=== PATIENT | male | born 1955 | race Two or more races ===

== ENCOUNTER 2019-02-03 14:07 | Inpatient (IN) | payer OTHER, MEDICAID ==
[~2019-02-03] VITALS: Ht 177.8 cm; Wt 90.7 kg
[~2019-02-03 14:07] MED LIST: ACET-1156 GT; ALPR0.5T7 PO; AML5T GT; ASPI81TA27 GT; FURO20TA GT; LACT10SO3 GT; LEVE500T3 GT; LEVO500T21 GT; LEVO750T64 PEG; LISI40TA PO; METF-370 GT; METF500T PEG; PANT40TA2 PO; SENN1TAB14 PO
[2019-02-03 14:56] LABS: Basophils # (auto) 0.1 uL; Eosinophils # (auto) 0.9 uL; Lymphocytes # (auto) 1.4 uL; Mean Corpuscular Volume 87.5 fL (80.0-100.0); Monocytes # (auto) 0.5 uL; Neutrophils # (auto) 3.6 uL; White Blood Cell 6.5 10^3/uL (4.4-10.8)
[2019-02-03 14:58] LABS: Basophils % (auto) 1.9 % (0.0-2.0); Eosinophils % (auto) 14.1 % (0.0-7.0); Hematocrit 51.9 % (41.0-53.0); Hemoglobin 17.2 g/dL (13.5-17.5); Lymphocytes % (auto) 21.4 % (10.0-50.0); Mean Corpuscular Hemoglobin 28.9 pg (28.0-32.0); Mean Corpuscular Hgb Conc. 33.1 g/dL (32.0-36.0); Monocytes % (auto) 7.6 % (0.0-12.0); Nucleated Red Blood Cells % 0.3 %; Platelet Count (auto) 155 10^3/uL (140-450); Red Blood Cells 5.93 10^6/uL (4.5-5.90); Red Cell Distribution Width 14.2 % (11.8-14.3)
[2019-02-03 15:12] LABS: Alanine Aminotransferase 39 U/L (16-61); Albumin 3.6 g/dL (3.4-5.0); Anion Gap 4 (5-15); Blood Urea Nitrogen 17 mg/dL (7-18); Calcium 9.5 mg/dL (8.5-10.1); Carbon Dioxide 34 mmol/L (21-32); Chloride 103 mmol/L (98-107); Glucose 178 mg/dL (74-106); Magnesium 2.8 mg/dL (1.6-2.6); Potassium 4.3 mmol/L (3.5-5.1); Sodium 141 mmol/L (136-145)
[2019-02-03 15:17] LABS: Alkaline Phosphatase 72 U/L (45-117); Aspartate Aminotransferase 26 U/L (15-37); BUN/Creatinine Ratio 28.8; Bilirubin, Total 0.7 mg/dL (0.2-1.0); GFR African American 179 mL/min; GFR Non-African American 148 mL/min; Total Protein 7.7 g/dL (6.4-8.2)
[2019-02-03] MEDS ORDERED: SODIUM CHLORIDE 0.9% 1,000 ML IVB ONE (15:35)
[2019-02-03] MEDS ORDERED: AZITHROMYCIN 500MG/ 250ML 250 ML IV ONE (15:45)
[2019-02-03 16:06] LABS: Urine WBC None Seen /hpf (0 - 3)
[2019-02-03 16:22] LABS: Urine Amorphous Crystal FEW /hpf (None Seen); Urine Bacteria NONE SEEN /hpf (None Seen); Urine Blood TRACE /uL (Negative); Urine Budding Yeast FEW /hpf (None Seen); Urine Specific Gravity 1.012 (1.001-1.035)
[2019-02-03 16:25] VITALS: BP 143/86
[2019-02-03] MEDS ORDERED: NITROGLYCERIN 0.4 MG SL TAB SL PRN (16:45)
[2019-02-03] MEDS ORDERED: Glucerna 1.2 Cal 1Liter BOTTLE GT SCH (16:45)
[2019-02-03] MEDS ORDERED: AMIKACIN 0 ML IV SCH (16:45)
[2019-02-03] MEDS ORDERED: ACETAMINOPHEN 500 MG TAB PO PRN (16:45)
[2019-02-03] MEDS ORDERED: MORPHINE SULF INJ 2 MG/ML SYRINGE 1ML IV PRN ×2 (16:45)
[2019-02-03] MEDS ORDERED: HYDROcodone-ACET 5/325MG TAB PO PRN (16:45)
[2019-02-03 16:58] LABS: INR 0.95 (0.9-1.15); Partial Thromboplastin Time 28.7 sec (23.64-32.05)
[2019-02-03] MEDS ORDERED: LACTULOSE 20Gm/30ML SOLN PO PRN (17:15)
[2019-02-03] MEDS: ALBUTEROL SULF 2.5 MG/0.5ML(0.5%) NEB SOLN NEB SCH ×2 (17:29→21:41)
[2019-02-03] MEDS: IPRATROPIUM BROM 0.5 MG/2.5ML INH SOL NEB SCH ×2 (17:29→21:41)
[2019-02-03] MEDS ORDERED: LACTULOSE 20Gm/30ML SOLN GT PRN (17:30)
[2019-02-03] MEDS ORDERED: HYDROcodone-ACET 5/325MG TAB GT PRN (17:30)
[2019-02-03] MEDS ORDERED: ACETAMINOPHEN 650 mg PER 20 mL UD GT PRN (17:30)
[2019-02-03] MEDS: FREE WATER GT SCH (18:13)
[2019-02-03 20:00] VITALS: BP 138/83
--- NOTE | 2019-02-03 20:10 | NUR ---
Admit to [facility] admitted to [facility] via gurney on monitoring analyst, and portable 02. Patient transferred to bed, connected to unit monitoring and oxygen @ 4L/min per nasal cannula, and weighed by bedscale. Patient and family oriented to Steph Wynne, primary RN, unit, room, bed, and unit policies regarding patient care and visiting hours. All questions and concerns addressed, patient verbalized understanding. NOTE: Patient came in with a midline in the right upper arm and g-tube, abdomen from home, munoz catheter which was inserted in ER. MRSA swab in the nares done d/t previous hospital admission 2 weeks ago, SCD's placed on bilateral legs. Initial assessment showed pt is aphasic and per daughter, can only see in the right eye but with cataract in the left eye. See spreadsheet for full assessment documentation. Medrec completed. No personal belongings noted.
--- NOTE | 2019-02-03 20:30 | NUR ---
MODERATE AMOUNT OF SOFT STOOLS NOTED, CLEANSED AND KEPT DRY AND COMFORTABLE, LINENS AND GOWN CHANGED. REPOSITIONED FOR COMFORT.
[2019-02-03] MEDS ORDERED: AMIKACIN IV SCH (21:00)
[2019-02-03] MEDS ORDERED: D5W 5% IV SCH (21:00)
[2019-02-03] MEDS ORDERED: GEMF600T7 PO (21:44)
[2019-02-03] MEDS: DOCUSATE ORAL LIQUID 100 MG/10 ML UD GT SCH (22:00)
[2019-02-03] MEDS: ALPRAZolam 0.25 MG TAB GT SCH (22:00)
[2019-02-03 22:46] VITALS: BP 134/83
[2019-02-04] VITALS (7 sets, daily range): BP systolic 103–133; BP diastolic 66–83
--- NOTE | 2019-02-04 03:00 | NUR ---
DESATURATION 84-85% ON O2/NASAL CANNULA, SHIFTED TO SIMPLE FACE MASK @ 8L/MIN, SAT 92%.
[2019-02-04 05:36] LABS: Basophils # (auto) 0.1 uL; Eosinophils # (auto) 0.8 uL; Eosinophils % (auto) 9.2 % (0.0-7.0); Hemoglobin 16.5 g/dL (13.5-17.5); Lymphocytes % (auto) 22.9 % (10.0-50.0); Mean Corpuscular Hemoglobin 29.4 pg (28.0-32.0); Mean Corpuscular Hgb Conc. 33.7 g/dL (32.0-36.0); Mean Corpuscular Volume 87.1 fL (80.0-100.0); Monocytes # (auto) 0.7 uL; Monocytes % (auto) 8.5 % (0.0-12.0); Neutrophils % (auto) 58.4 % (37.0-80.0); Nucleated Red Blood Cells % 0.5 %; Platelet Count (auto) 142 10^3/uL (140-450); Red Blood Cells 5.63 10^6/uL (4.5-5.90); Red Cell Distribution Width 14.3 % (11.8-14.3); White Blood Cell 8.6 10^3/uL (4.4-10.8)
[2019-02-04 05:45] LABS: BUN/Creatinine Ratio 26.5
[2019-02-04] MEDS: FREE WATER GT SCH ×4 (06:00→17:15)
[2019-02-04] MEDS: IPRATROPIUM BROM 0.5 MG/2.5ML INH SOL NEB SCH ×5 (06:10→22:46)
[2019-02-04] MEDS: ALBUTEROL SULF 2.5 MG/0.5ML(0.5%) NEB SOLN NEB SCH ×5 (06:10→22:46)
--- NOTE | 2019-02-04 06:25 | NUR ---
RT NOTE: NTS PERFORMED BY STERILE PROCEDURE. TWO PASSES MADE WITHOUT INCIDENT. COARSE RHONCHI NOTED PRIOR TO SUCTION, AND CLEAR/DIMINSHED AFTER NTS. PT. HAS STRONG COUGH WHEN NTS. ORALLY SUCTIONED FOR MODERATE, CLEAR/THICK SECRETIONS.
--- NOTE | 2019-02-04 09:15 | NUR ---
WOUND CARE NOTE: SYNERGY AIR ELITE AIR MATTRESS ORDERED AT THIS TIME. PATIENT TO BE PLACED, PENDING DELIVERY BY [facility] ALEXANDRE.
[2019-02-04] MEDS: ASPirin 81 mg TAB GT SCH (09:40)
[2019-02-04] MEDS: LISINOPRIL 20 MG TAB GT SCH (09:40)
[2019-02-04] MEDS: amLODIPine BESYLATE 5 MG TAB GT SCH (09:41)
[2019-02-04] MEDS: ALPRAZolam 0.25 MG TAB GT SCH (09:51)
[2019-02-04] MEDS: DOCUSATE ORAL LIQUID 100 MG/10 ML UD GT SCH ×2 (09:51→22:00)
[2019-02-04] MEDS ORDERED: FAMOTIDINE 20 MG TAB PO SCH (10:00)
--- NOTE | 2019-02-04 10:00 | NUR ---
Family updated on pt status Family of KYLE RENDON updated on patient's status and condition. All questions and concerns addressed. and step daughter verbalized understanding.
--- NOTE | 2019-02-04 11:30 | NUR ---
SPECIALTY BED SPECIALTY BED BROUGHT TO [facility] FOR PATIENT. PATIENT PLACED ON SPECIALTY BED
--- NOTE | 2019-02-04 11:50 | NUR ---
WOUND CARE NOTE: IN TO SEE PATIENT AT THIS TIME PER WOUND CARE CONSULT REQUEST. PATIENT RECENTLY ADMITTED TO [facility] WITH DIAGNOSIS OF ACUTE ON CHRONIC RESPIRATORY FAILURE. HE HAS CURRENT RADHA SCORE OF 13. PATIENT HAS RECENTLY BEEN PLACED ON SPECIALTY AIR MATTRESS PER MD ORDER. PATIENT IS APHASIAC, TOTAL CARE FOR HIS ADL'S. HE IS BEDBOUND. 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 PATIENT HAS PREVENTATIVE SACRAL DRESSING IN PLACE. WOUND PHOTO OF SCARS TAKEN UPON ADMIT BY BEDSIDE NURSE FOR REFERENCE. RECOMMEND: FREQUENT TURN SCHEDULE Q 2 HOURS, PRN CONDITION PERMITS, WITH PRESSURE REDISTRIBUTION USING PILLOWS/WEDGES, BID/PRN APPLICATION WITH MOISTURE BARRIER CREAM, OPTIFOAM GENTLE SACRAL DRESSING, SPECIALTY AIR MATTRESS, SKIN/WOUND CARE PLAN, DIETARY CONSULT, CONTINUED MONITORING BY WOUND CARE TEAM. Addendum: 02/04/19 at 1756 by Kayleen Thurman RN Amended: Links added.
[2019-02-04] MEDS: OMEPRAZOLE 20MG/10ML ORAL SUSP GT SCH (11:54)
--- NOTE | 2019-02-04 12:24 | NUR ---
NUTRITION CONSULT/ASSESSMENT NOTES Please refer to link notes of nutrition screen form filed under the intervention section of the plan of care for further details. Est. Needs: 1800 kcal to 1950 kcal (23-25 kcal/kgBW), 78 gms to 102 gms pro (1.0-1.3 gms/kgBW for wound healing). Will continue to monitor pertinent labs and reassess nutrient need prn Thank you for this consult. Addendum: 02/04/19 at [address] Amended: Links added.
[2019-02-04] MEDS ORDERED: ALPRAZolam 0.25 MG TAB PO PRN (12:45)
--- NOTE | 2019-02-04 13:00 | NUR ---
MD ROUNDS DR. TORRES AT BEDSIDE. NEW ORDERS IN PLACE.
[2019-02-04] MEDS: Glucerna 1.2 Cal 1Liter BOTTLE GT SCH (13:25)
--- NOTE | 2019-02-04 13:48 | NUR ---
NUTRITION MAST MAKER ORDERED GLUCERNA AT 70MLS/HR. NO RESIDUAL WHEN CHECKED. GLUCERNA INCREASED TO 50MLS/MR. ASPIRATION PRECAUTIONS IN PLACE.
[2019-02-04] MEDS ORDERED: GABAPENTIN 100 MG CAP PO SCH (14:00)
[2019-02-04] MEDS ORDERED: DEXTROSE (50%) 50ML SYRG IV PRN (14:15)
[2019-02-04] MEDS: ACCU-CHEK COMFORT CURVE STRIP VI SCH ×2 (17:08→22:09)
[2019-02-04] MEDS: InsuLIN REG 1unit/0.01ml Soln (100units/ml) SC SCH ×2 (17:14→22:00)
[2019-02-04] MEDS: NYSTATIN (MOUTH-THROAT) 500,000 UNITS/5 ML SUSP MT SCH ×2 (17:21→22:08)
--- NOTE | 2019-02-04 17:53 | NUR ---
CALLED SLIVER FORMER INFORMED HER THAT PATIENT WAS NOT ON LIST FOR OR. HAYLEE SUP. AWARE.
--- NOTE | 2019-02-04 20:00 | NUR ---
SHIFT OPENING NOTE RECEIVED PATIENT LAYING IN SPECIALTY MATTRESS, APHASIC, DOES NOT RESPOND TO QUESTIONS OR TRACKS. NO SOB OR DISTRESS NOTED. ON 4L N/C. G TUBE IN PLACE WITH GLUCERNA FEEDINGS AT 50 ML/H, 2O ML OF RESIDUALS NOTED. POLLACK CATH DRAINING RED TINGED URINE WITH SEDIMENT TO GRAVITY. MIDLINE IN RIGHT UPPER ARM SL. PHYSICAL ASSESSMENT COMPLETED, SEE INTERVENTIONS. ORAL SUCTION, AND REPOSITIONED. UNABLE TO EDUCATE PATIENT REGARDING POC. WILL CLOSELY MONITOR.
[2019-02-04] MEDS: D5W 5% IV SCH (22:10)
[2019-02-04] MEDS: AMIKACIN IV SCH (22:10)
[2019-02-05] VITALS: BP 126/76
[2019-02-05] MEDS: FREE WATER GT SCH ×4 (00:08→17:47)
--- NOTE | 2019-02-05 00:10 | NUR ---
ROUNDS PATIENT IS LAYING IN BED SLEEPING. NO SOB, DISTRESS OR PAIN NOTED. WILL CONTINUE TO CLOSELY MONITOR
[2019-02-05 04:00] VITALS: BP 115/70
--- NOTE | 2019-02-05 04:30 | NUR ---
MORNING HYGIENE CARE ORAL CARE PERFORMED. ORALLY SUCTIONED OUT MODERATE AMOUNT OF CREAMY THICK SECRETIONS. FULL BED BATH PERFORMED USING CHG WIPES. COMPLETE LINEN CHANGED. GOWN CHANGED. POLLACK CARE DONE. PATIENT REPOSITIONED FOR COMFORT. TOLERATED IT WELL. VS STABLE.
[2019-02-05 05:59] LABS: Potassium 3.8 mmol/L (3.5-5.1)
[2019-02-05] MEDS: NYSTATIN (MOUTH-THROAT) 500,000 UNITS/5 ML SUSP MT SCH ×4 (06:00→21:15)
[2019-02-05] MEDS: IPRATROPIUM BROM 0.5 MG/2.5ML INH SOL NEB SCH ×5 (06:19→22:31)
[2019-02-05] MEDS: ALBUTEROL SULF 2.5 MG/0.5ML(0.5%) NEB SOLN NEB SCH ×5 (06:19→22:31)
[2019-02-05] MEDS: ACCU-CHEK COMFORT CURVE STRIP VI SCH ×4 (06:30→21:16)
[2019-02-05] MEDS: InsuLIN REG 1unit/0.01ml Soln (100units/ml) SC SCH ×4 (06:30→21:26)
--- NOTE | 2019-02-05 07:00 | NUR ---
END OF SHIFT PATIENT IS QUIETLY LAYING IN BED SLEEPING. NO SOB, DISTRESS OR PAIN NOTED. POX 97% ON 4L N/C. WILL GIVE REPORT AND ENDORSE CARE TO THE DAY SHIFT RN.
[2019-02-05 08:00] VITALS: BP 110/61
--- NOTE | 2019-02-05 08:16 | NUR ---
Opening Shift Note Assumed care of patient, awake and alert. Patient aphasic and cannot respond to questions and does not track. Patient on 4L NC saturation at 98%. Zavala to gravity. Midline right upper arm saline locked, patent, clean, dry, and intact. G tube in place running Glucerna at 50ml/hr. No S/S of distress/SOB or pain. Bed locked and in the lowest position, side rails up x2, call light with in reach. Instructed on POC and to call for assist PRN. Will continue to monitor.
--- NOTE | 2019-02-05 09:45 | NUR ---
Dr. Garcia at bedside.
[2019-02-05] MEDS: ASPirin 81 mg TAB GT SCH (10:04)
[2019-02-05] MEDS: OMEPRAZOLE 20MG/10ML ORAL SUSP GT SCH (10:04)
[2019-02-05] MEDS: DOCUSATE ORAL LIQUID 100 MG/10 ML UD GT SCH ×2 (10:04→21:15)
[2019-02-05] MEDS: amLODIPine BESYLATE 5 MG TAB GT SCH (10:10)
--- NOTE | 2019-02-05 10:15 | NUR ---
Medication dosages, usages, and side effects explained to patient and family. Patient unable to verify understanding, Daughter and verified understanding. Will continue to monitor.
[2019-02-05] MEDS: LISINOPRIL 20 MG TAB GT SCH (10:20)
--- NOTE | 2019-02-05 11:30 | NUR ---
Report given to Suly BENÍTEZ. Patient placed on tele box 8. All belongings taken with patient. Patient transported to room 232 by Theresa JOHNSON and myself. No S/S of pain/SOB or distress during transport.
[2019-02-05 12:46] VITALS: BP 113/72
--- NOTE | 2019-02-05 12:53 | NUR ---
faxed ss order resumption of hh to [facility]. pt was previously with [facility]
--- NOTE | 2019-02-05 13:00 | NUR ---
Respiratory note: NASAL TRACHEAL SUCTIONING PERFORMED BY STERILE PROCEDURE. TWO PASSES MADE THROUGH RIGHT NOSTRIL WITHOUT INCIDENT. COARSE RHONCHI NOTED PRIOR TO SUCTION, AND CLEAR AFTER NTS. PT. HAS STRONG COUGH WHEN NTS. ORALLY SUCTIONED X 3 FOR MODERATE, ELIZALDE/THICK SECRETIONS.
[2019-02-05] MEDS ORDERED: MILK OF MAGNESIA 30ML SUSP GT ONE (14:00)
[2019-02-05] MEDS ORDERED: SENNA 8.6 MG TAB GT ONE (14:00)
--- NOTE | 2019-02-05 14:38 | NUR ---
[facility] FOR [employer] IS [id number]
--- NOTE | 2019-02-05 15:18 | NUR ---
Pt was unable to sign IM form due to confusion. There was no family at the bedside.
[2019-02-05 16:21] VITALS: BP 100/65
--- NOTE | 2019-02-05 16:27 | NUR ---
Concetta has not called me back so if pt d/c this weekend, pt will have to wait till Friday for d/c since Concetta will need to give me information or wait for her to do snf placement
--- NOTE | 2019-02-05 19:18 | NUR ---
Respiratory note: PLACED PT BACK ON 4L NC AT THIS TIME, PT WAS OFF WITH SAT OF 86%.
--- NOTE | 2019-02-05 19:25 | NUR ---
Opening Shift Note Assumed care of patient, awake and alert. No S/S of distress/SOB or pain. Instructed on POC and to call for assist PRN, will continue to monitor for changes Q1hr and PRN. Family at bedside giving bath to patient. Patient is awake, eyes are red, said it's been like that. Bed in low position.
[2019-02-05 21:00] VITALS: BP 112/67
[2019-02-05] MEDS: D5W 5% IV SCH (21:25)
[2019-02-05] MEDS: AMIKACIN IV SCH (21:25)
[2019-02-06] MEDS: FREE WATER GT SCH ×5 (00:12→23:45)
[2019-02-06] MEDS: Glucerna 1.2 Cal 1Liter BOTTLE GT SCH (04:55)
[2019-02-06 05:00] VITALS: BP 121/72
[2019-02-06] MEDS: ACCU-CHEK COMFORT CURVE STRIP VI SCH ×4 (05:29→22:01)
[2019-02-06] MEDS: NYSTATIN (MOUTH-THROAT) 500,000 UNITS/5 ML SUSP MT SCH ×4 (05:30→22:00)
[2019-02-06] MEDS: InsuLIN REG 1unit/0.01ml Soln (100units/ml) SC SCH ×4 (05:30→22:11)
[2019-02-06] MEDS: IPRATROPIUM BROM 0.5 MG/2.5ML INH SOL NEB SCH ×5 (05:53→22:17)
[2019-02-06] MEDS: ALBUTEROL SULF 2.5 MG/0.5ML(0.5%) NEB SOLN NEB SCH ×5 (05:53→22:17)
--- NOTE | 2019-02-06 05:58 | NUR ---
RT NOTE: WENT TO PTS ROOM TO ADMINISTER BREATHING TX, PT WAS ON 4L NC SPO2 84%, PT WAS ADMINISTERED BREATHING TX, POST TX PT WAS PLACED ON 6L SIMPLE MASK, SPO2 94% PT TOLERATED WELL. RN KASEY MADE AWARE OF CHANGES.
--- NOTE | 2019-02-06 06:13 | NUR ---
CORRECTION NOTE FOR [facility] AND [facility] IS NOT FOR THIS PT
--- NOTE | 2019-02-06 06:32 | NUR ---
PER ANA AT [facility] PT HAS BEEN ACCEPTED AND CARE WILL START 24-48 HRS POST D/C
[2019-02-06 08:00] VITALS: BP 117/66
--- NOTE | 2019-02-06 08:00 | NUR ---
ASSESSMENT NOTE PATIENT IS ALERT TO SELF, OPEN AND CLOSE EYES, RESTING IN BED COMFORTABLY IN LOW BULLARD POSITION, ABLE TO MOVE HIS HEAD RIGHT AND LEFT, APHASIC, GENERALIS WEAKNESS NOTED, UNABLE TO MOVE HIS UPPER OR LOWER EXTREMITIES, ON CONTINUOS PEG TUBE FEEDING, TOLERATED WELL, NO RESIDUAL NOTED, PEG TUBE CHECKED FOR PLACEMENT, REPOSITION EVERY 2 HOURS AT ALL TIMES, TEGADERM NOTED ON THE SACRUM, CLOSE TO THE NURSING STATION, ON CONTACT ISOLATION, MONITOR Q SHIFT.
[2019-02-06] MEDS: amLODIPine BESYLATE 5 MG TAB GT SCH (09:21)
[2019-02-06] MEDS: ASPirin 81 mg TAB GT SCH (09:22)
[2019-02-06] MEDS: LISINOPRIL 20 MG TAB GT SCH (09:22)
[2019-02-06 09:27] VITALS: BP_SYST 121; BP_SYST 125; BP_DIAS 67; BP_DIAS 72
[2019-02-06] MEDS: DOCUSATE ORAL LIQUID 100 MG/10 ML UD GT SCH ×2 (09:32→22:01)
--- NOTE | 2019-02-06 10:00 | NUR ---
PAIENT REQUIRED SUCTIONING FROM THE MOUTH CAVITY AREA EVERY 15 TO 25 MINUTES, WHITE TINGED YELLOW PHLEGM NOTED.
--- NOTE | 2019-02-06 10:07 | NUR ---
DR HOLLOWAY AT BED SIED FOLLOWING UP ON PT, FAMILY AWARE AT BED SIDE.
[2019-02-06] MEDS: OMEPRAZOLE 20MG/10ML ORAL SUSP GT SCH (10:35)
--- NOTE | 2019-02-06 11:00 | NUR ---
FAMILY PATIENT AND HER DAUGHTER ARE BACK AGAIN, WASHING HER FEET, AND TAKING CARE OF HIM.
--- NOTE | 2019-02-06 11:54 | NUR ---
Nutrition consult/Follow-up Notes Wt.: 84.5 kg Pt's in isolation room, asleep,no signs of distress noted during rounds this morning. Pt's currently NPO with EN support of Glucerna 1.2 Ward @ 50 ml/hr via PEG tube providing 1440 kcal, 72 gms pro, tolerates feeding well, per nursing. Pt with fair EN support d/t mod initiation rate delivery of concentrated formula aeb current EN infusion meets 73-80% of est caloric needs and 70-92%.of est protein needs. Est. Needs: 1800 kcal to 1950 kcal (23-25 kcal/kgBW), 78 gms to 102 gms pro (1.0-1.3 gms/kgBW for wound healing). Will continue to monitor pertinent labs and reassess nutrient need prn Labs: GLU 119 H, rest lab wnl for today Skin: Sylvester scale 13, mod risk, pressure ulcer sacrum per documentation improvement specialist. GI: Pt had 1 BM 02/04/19 per documentation improvement specialist. PES: Altered nutrition related lab values r/t acute/chronic medical condition aeb hyperglycemia, low Cr and elev. Mg level Increased nutrient needs r/t current/chronic medical condition aeb ALOC, CVA, Quadriplegia, NPO with EN support via PEG tube Will continue to monitor NPO status, EN tolerance skin status, pertinent labs and weight trend. F/u in 2 to 3 days. Rec.: 1.) Continue EN support with gradual increase on feeding rate of Glucerna 1.2 Ward to 65 ml/hr goal rate via PEG tube as tolerated when medically appropriate. 2.) Consider daily MVI with minerals and Asc acid 500 mgs BID. 3.) Refer pt's family to CDE/RD for further nutrition education and weight monitoring upon discharged. 4.) Continue current plan of care.
[2019-02-06 13:00] VITALS: BP 124/85
--- NOTE | 2019-02-06 15:30 | NUR ---
TOTAL BODY CARE IS DONE , INCLUDING THE POLLACK CATHETER CARE AND AND SACRUM DRESSING, PATIENT TOLERATED WELL, PATIENT AT BED SIDE AWARE, FOLLOWED BY SUCTIONING FROM PATIENT'S MOUTH.
[2019-02-06 16:45] VITALS: BP 121/75
--- NOTE | 2019-02-06 17:41 | NUR ---
CONTINUE REPOSITIONING PT EVERY 2 HOURS AT ALL TIMES, FROM SIDE TO SIDE.
--- NOTE | 2019-02-06 19:11 | NUR ---
Opening Shift Note Assumed care of patient, awake and alert. No S/S of distress/SOB or pain. Insructed on POC and to callfor assist PRN, will continue to monitor for changes Q1hr and PRN.
--- NOTE | 2019-02-06 19:11 | NUR ---
Opening Shift Note Assumed care of patient, awake and alert. No S/S of distress/SOB or pain. Instructed on POC and to call for assist PRN, will continue to monitor for changes Q1hr and PRN. Bed in low position, call song with in reach.
[2019-02-06] MEDS: AMIKACIN IV SCH (22:00)
[2019-02-06] MEDS: D5W 5% IV SCH (22:00)
[2019-02-06 22:03] VITALS: BP 118/76
--- NOTE | 2019-02-06 22:41 | NUR ---
PATIENT ON 02 VIA MASK AT 6L/MIN, PATIENT MOUTH BREATHER. 02 SAT 96%.
[2019-02-07 05:07] VITALS: BP 105/68
[2019-02-07 05:51] LABS: Hematocrit 48.4 % (41.0-53.0); Hemoglobin 16.1 g/dL (13.5-17.5)
[2019-02-07] MEDS: InsuLIN REG 1unit/0.01ml Soln (100units/ml) SC SCH ×4 (05:56→21:13)
[2019-02-07] MEDS: ACCU-CHEK COMFORT CURVE STRIP VI SCH ×4 (05:57→21:12)
[2019-02-07] MEDS: ALBUTEROL SULF 2.5 MG/0.5ML(0.5%) NEB SOLN NEB SCH ×5 (05:57→22:10)
[2019-02-07] MEDS: IPRATROPIUM BROM 0.5 MG/2.5ML INH SOL NEB SCH ×5 (05:57→22:10)
[2019-02-07] MEDS: FREE WATER GT SCH ×3 (05:58→17:57)
[2019-02-07] MEDS: NYSTATIN (MOUTH-THROAT) 500,000 UNITS/5 ML SUSP MT SCH ×4 (06:00→21:11)
[2019-02-07 06:08] LABS: Potassium 3.8 mmol/L (3.5-5.1)
[2019-02-07 06:18] LABS: BUN/Creatinine Ratio 45.3; Calcium 9.8 mg/dL (8.5-10.1)
[2019-02-07] MEDS: Glucerna 1.2 Cal 1Liter BOTTLE GT SCH (06:45)
[2019-02-07 08:00] VITALS: BP 128/67
--- NOTE | 2019-02-07 08:00 | NUR ---
ASSESSMENT NOTE PATIENT IS ALERT TO SELF, OPEN AND CLOSE EYES, RESTING IN BED COMFORTABLY IN LOW BULLARD POSITION, ABLE TO MOVE HIS HEAD RIGHT AND LEFT, APHASIC, GENERALIS WEAKNESS NOTED, UNABLE TO MOVE HIS UPPER OR LOWER EXTREMITIES, ON CONTINUOS PEG TUBE FEEDING, TOLERATED WELL, NO RESIDUAL NOTED, PEG TUBE CHECKED FOR PLACEMENT, REPOSITION EVERY 2 HOURS AT ALL TIMES, TEGADERM NOTED ON THE SACRUM, CLOSE TO THE NURSING STATION, ON CONTACT ISOLATION, MONITOR Q SHIFT.PATIENT IS ABLE TO COMMUNICATE WITH US BY BLINKING HIS EYES, MOANING, OCCASIONALLY MOVE HIS RT HAND AND TOUCH HIS FACE.
[2019-02-07 08:33] VITALS: BP 123/61
[2019-02-07] MEDS: ASPirin 81 mg TAB GT SCH (09:00)
[2019-02-07] MEDS: LISINOPRIL 20 MG TAB GT SCH (09:01)
[2019-02-07] MEDS: amLODIPine BESYLATE 5 MG TAB GT SCH (09:01)
[2019-02-07] MEDS: OMEPRAZOLE 20MG/10ML ORAL SUSP GT SCH (09:02)
[2019-02-07] MEDS: DOCUSATE ORAL LIQUID 100 MG/10 ML UD GT SCH ×2 (09:17→21:11)
--- NOTE | 2019-02-07 10:25 | NUR ---
PATIENT IS MOANING LOUD, REPOSITION PATIENT FOLLOWED BY SUCTIONING FROM THE ORAL CAVITY, ALL PATIENT'S LINES G TUBE AND POLLACK CATHETER ARE FREE FROM ANY PRESSURE, VERIFY WITH PATIENT BY SAYING DELORE, PATIENT BLINKED HIS RT EYE, AGREEING, MEDICATED PATIENT WITH 1 MG MORPHINE, OXYGEN 4.5 MASK SAT ON 98 %, CONTINUE MONITORING
--- NOTE | 2019-02-07 12:00 | NUR ---
CONTINUE REPOSITIONING PT EVERY 2 HOURS AT ALL TIMES, HEAD OF BED ELEVATED FOR ASPIRATION T ALL TIMES
[2019-02-07] MEDS ORDERED: HYDROcodone-ACET 5/325MG TAB GT PRN (12:30)
[2019-02-07] MEDS ORDERED: MORPHINE SULF INJ 2 MG/ML SYRINGE 1ML IV PRN (12:30)
[2019-02-07 15:00] VITALS: BP 110/66
--- NOTE | 2019-02-07 18:02 | NUR ---
PATIENT CONTINUE STABLE, CONTINUE MONITORING, PATIENT AT BED SIDE MOST OF THE TIME, PATIENT'S IS VERY ABLE TO COMMUNICATE WITH HER , PATIENT IS ALWAYS COMPLYING.
--- NOTE | 2019-02-07 19:43 | NUR ---
Opening Shift Note Assumed care of patient, awake and alert. No S/S of distress/SOB or pain. Instructed on POC and to call for assist PRN, will continue to monitor for changes Q1hr and PRN. Family at bedside. Special bed in place. Zavala catheter in place. Bed in low position. Bed alarm on. Call song with in reach.
[2019-02-07 22:22] VITALS: BP 115/68
[2019-02-07] MEDS: AMIKACIN IV SCH (22:54)
[2019-02-07] MEDS: D5W 5% IV SCH (22:54)
[2019-02-08] MEDS: FREE WATER GT SCH ×5 (00:46→23:48)
[2019-02-08 05:01] VITALS: BP 108/64
[2019-02-08] MEDS: InsuLIN REG 1unit/0.01ml Soln (100units/ml) SC SCH ×4 (05:01→21:46)
[2019-02-08] MEDS: ACCU-CHEK COMFORT CURVE STRIP VI SCH ×4 (05:01→21:32)
[2019-02-08] MEDS: NYSTATIN (MOUTH-THROAT) 500,000 UNITS/5 ML SUSP MT SCH ×4 (05:01→21:32)
[2019-02-08] MEDS: IPRATROPIUM BROM 0.5 MG/2.5ML INH SOL NEB SCH ×5 (05:02→22:31)
[2019-02-08] MEDS: ALBUTEROL SULF 2.5 MG/0.5ML(0.5%) NEB SOLN NEB SCH ×5 (05:02→22:31)
--- NOTE | 2019-02-08 07:30 | NUR ---
Opening Shift Note Assumed care of patient, awake but aphasic. No S/S of distress/SOB or pain. Patient is on oxygen via mask at 6L/min. Instructed on POC-await for final culture report. Patient informed to call for assist PRN, will continue to monitor for changes Q1hr and PRN.
[2019-02-08] MEDS: DOCUSATE ORAL LIQUID 100 MG/10 ML UD GT SCH ×2 (09:24→21:32)
[2019-02-08] MEDS: ASPirin 81 mg TAB GT SCH (09:24)
[2019-02-08] MEDS: OMEPRAZOLE 20MG/10ML ORAL SUSP GT SCH (09:25)
[2019-02-08 09:35] VITALS: BP 105/67
[2019-02-08] MEDS: LISINOPRIL 20 MG TAB GT SCH (09:38)
[2019-02-08] MEDS: amLODIPine BESYLATE 5 MG TAB GT SCH (09:38)
--- NOTE | 2019-02-08 11:19 | NUR ---
Page Dr. Garcia to ask for order for Milk of Magnesia and Senna per family's request.
[2019-02-08] MEDS ORDERED: MILK OF MAGNESIA 30ML SUSP PO PRN (11:30)
[2019-02-08] MEDS ORDERED: SENNA 8.6 MG TAB PO PRN (11:30)
[2019-02-08] MEDS ORDERED: BISACODYL 10 MG RECT SUPP PR PRN (11:30)
[2019-02-08] MEDS ORDERED: SENNA 8.6 MG TAB PO ONE (11:30)
--- NOTE | 2019-02-08 11:33 | NUR ---
Nutrition Follow-up Notes Wt.: 85.6 kg Pt's in isolation room, asleep,no signs of distress noted during rounds this morning. Pt's currently NPO with EN support of Glucerna 1.2 Ward @ 50 ml/hr via PEG tube providing 1440 kcal, 72 gms pro, tolerates feeding well, per nursing. Pt with fair EN support d/t mod initiation rate delivery of concentrated formula aeb current EN infusion meets 73-80% of est caloric needs and 70-92%.of est protein needs. Est. Needs: 1800 kcal to 1950 kcal (23-25 kcal/kgBW), 78 gms to 102 gms pro (1.0-1.3 gms/kgBW for wound healing). Will continue to monitor pertinent labs and reassess nutrient need prn Labs:BUN 30 H, rest lab wnl for today Skin: Sylvester scale 13, mod risk, pressure ulcer sacrum per clinical documentation manager. GI: Pt had 1 BM 02/04/19 per clinical documentation manager. noted pt to be on MOM PES: Altered nutrition related lab values r/t acute/chronic medical condition aeb hyperglycemia, low Cr and elev. Mg level Increased nutrient needs r/t current/chronic medical condition aeb ALOC, CVA, Quadriplegia, NPO with EN support via PEG tube Will continue to monitor NPO status, EN tolerance skin status, pertinent labs and weight trend. F/u in 2 to 3 days. Rec.: 1.) Continue EN support with gradual increase on feeding rate of Glucerna 1.2 Ward to 65 ml/hr goal rate via PEG tube as tolerated when medically appropriate. 2.) Consider daily MVI with minerals and Asc acid 500 mgs BID. 3.) Refer pt's family to CDE/RD for further nutrition education and weight monitoring upon discharged. 4.) Continue current plan of care.
[2019-02-08 13:20] VITALS: BP 106/70
[2019-02-08] MEDS: Glucerna 1.2 Cal 1Liter BOTTLE GT SCH (14:16)
[2019-02-08] MEDS: CEFTAZIDIME-AVIBACTAM 2.5gm 2.5 GM in D5W 5% 100 ML IV SCH ×2 (16:30→23:47)
[2019-02-08 16:50] VITALS: BP 117/60
[2019-02-08] MEDS: AMIKACIN IV SCH (21:32)
[2019-02-08] MEDS: D5W 5% IV SCH (21:32)
[2019-02-08 22:10] VITALS: BP 137/86
[2019-02-09 04:19] VITALS: BP 139/80
[2019-02-09] MEDS: Glucerna 1.2 Cal 1Liter BOTTLE GT SCH (04:30)
[2019-02-09] MEDS: CEFTAZIDIME-AVIBACTAM 2.5gm 2.5 GM in D5W 5% 100 ML IV SCH ×3 (05:32→22:11)
[2019-02-09] MEDS: InsuLIN REG 1unit/0.01ml Soln (100units/ml) SC SCH ×4 (05:32→22:50)
[2019-02-09] MEDS: FREE WATER GT SCH ×3 (05:32→18:10)
[2019-02-09] MEDS: NYSTATIN (MOUTH-THROAT) 500,000 UNITS/5 ML SUSP MT SCH ×4 (05:32→22:12)
[2019-02-09] MEDS: ACCU-CHEK COMFORT CURVE STRIP VI SCH ×4 (05:33→22:12)
[2019-02-09] MEDS: ALBUTEROL SULF 2.5 MG/0.5ML(0.5%) NEB SOLN NEB SCH ×5 (06:11→22:42)
[2019-02-09] MEDS: IPRATROPIUM BROM 0.5 MG/2.5ML INH SOL NEB SCH ×5 (06:11→22:42)
[2019-02-09 06:36] LABS: Calcium 9.4 mg/dL (8.5-10.1)
--- NOTE | 2019-02-09 07:35 | NUR ---
Received patient bedbound, on G-Tube feeding, on face mask at 8 LPM. 02 Sat = 90%, on specialty mattress.
--- NOTE | 2019-02-09 08:29 | NUR ---
Family at bedside, angry that patient's O2 Sat = 81%, lips are dry. Suctioned the patient's mouth. O2 Sat = 81%. Cleaned the patient's mouth.
--- NOTE | 2019-02-09 08:30 | NUR ---
O2 Sat = 81%, Heart Rate = 97. Suctioned the mouth, throat. O2 Sat = 80% to 81%.
--- NOTE | 2019-02-09 08:32 | NUR ---
02 increased to 10 LPM. O2 Sat = 83%.
--- NOTE | 2019-02-09 08:35 | NUR ---
Called Respiratory Therapist. RT suctioned the nares, mouth, throat; increased O2 via face mask to 12 LPM. O2 Sat = 91% to 93%.
--- NOTE | 2019-02-09 08:36 | NUR ---
O2 Sat = 91% to 95% on O2 at 12 LPM via face mask. Family at bedside.
--- NOTE | 2019-02-09 08:36 | NUR ---
Family is angry, wants to speak with the Charge Nurse. Charge Nurse Marisol made aware.
[2019-02-09 09:00] VITALS: BP 125/72
--- NOTE | 2019-02-09 09:10 | NUR ---
O2 Sat = 97% on O2 at 12 LPM via face mask. Heart Rate = 87. Family at bedside.
[2019-02-09] MEDS: DOCUSATE ORAL LIQUID 100 MG/10 ML UD GT SCH ×2 (09:22→21:19)
--- NOTE | 2019-02-09 09:22 | NUR ---
Tylenol Liquid given via G tube for pain.
[2019-02-09] MEDS: LISINOPRIL 20 MG TAB GT SCH (09:23)
[2019-02-09] MEDS: amLODIPine BESYLATE 5 MG TAB GT SCH (09:24)
[2019-02-09] MEDS: ASPirin 81 mg TAB GT SCH (09:24)
[2019-02-09] MEDS: OMEPRAZOLE 20MG/10ML ORAL SUSP GT SCH (09:29)
--- NOTE | 2019-02-09 09:45 | NUR ---
Changed the canister, suction tube. About 800 ml of fluids collected in the canister.
--- NOTE | 2019-02-09 09:47 | NUR ---
Will call Dr. Garcia and verify if she wants amikacin troughs done when pt is home, I also spoke to Sarah and stated pt midline will have to be changed. [facility] has accepted pt for IV ABXs as long as family is teachable
--- NOTE | 2019-02-09 09:50 | NUR ---
Patient had a bowel movement as per [employer] Saira. Family at bedside.
--- NOTE | 2019-02-09 09:58 | NUR ---
Dr. Garcia at bedside. ordered a new midline. Daughter is teachable with Amikacin.
--- NOTE | 2019-02-09 10:00 | NUR ---
Dr. Garcia ordered to remove the Zavala catheter. Patient for discharge when the IV antibiotics is set up, remove the old midline, insert a new one.
--- NOTE | 2019-02-09 10:05 | NUR ---
Spoke with JACKELIN Joyec that patient needs a new Midline, the current midline is inserted on January 09, 2019, for home IV antibiotics.
--- NOTE | 2019-02-09 12:30 | NUR ---
Patient had a bowel movement. Large, greenish/brownish loose stools noted. Cleaned the patient.
--- NOTE | 2019-02-09 12:35 | NUR ---
Photos taken of the sacral area. Wound Care form placed on the Wound Care tray, camera returned to [facility].
--- NOTE | 2019-02-09 12:59 | NUR ---
Nystatin applied in the mouth, suction done. Patient unable to swallow, on G tube. O2 Sat = 94%, Heart Rate = 97.
[2019-02-09 13:17] VITALS: BP 113/68
--- NOTE | 2019-02-09 14:48 | NUR ---
Temp = 98.2 F, O2 Sat = 97%, Heart Rate = 91. Daughter at bedside.
--- NOTE | 2019-02-09 14:50 | NUR ---
Patient had a bowel movement. Large, greenish lose stools noted. Cleaned the patient, repositioned the patient. Mouth suctioning done. Daughter at bedside.
--- NOTE | 2019-02-09 15:50 | NUR ---
Paged [employer] Merissa.
--- NOTE | 2019-02-09 16:00 | NUR ---
Rolled [employer] Pl[employer] Merissa called back. Merissa made aware patient has pending Midline insertion, daughter at bedside asking when is the home IV antibiotics be set up, they have not received a call back yet from the company.
--- NOTE | 2019-02-09 16:05 | NUR ---
Informed daughter that patient's discharge is pending until the new midline is inserted, and the home IV antibiotics is set up.
--- NOTE | 2019-02-09 16:06 | NUR ---
Pt cannot go home tonoc, too late to set up for home abx since midline is not in yet.
--- NOTE | 2019-02-09 16:24 | NUR ---
discussed in MDT meeting with Dr. Garcia need for new midline if pt needs 2 more wks of abx since current picc line has been in sine 01-09-19. at this time, midline still is not placed, since Picc line RN very busy.
--- NOTE | 2019-02-09 16:55 | NUR ---
Paged Dr. Garcia. Waiting for MD to call back.
[2019-02-09 17:03] VITALS: BP 107/65
--- NOTE | 2019-02-09 17:20 | NUR ---
PICC Line JACKELIN Joyce at bedside for Midline insertion.
--- NOTE | 2019-02-09 17:56 | NUR ---
Midline Placement: Patient educated on need for midline placement. All risks and benefits explained and all questions and concerns addresses prior to procedure. 18/10cm midline inserted via left basilic vein using Ultrasound. Sterile technique utilized. Blood return obtained from the lumen and flushed easily with NS using proper technique. Midline secured with saline lock; biodisc and occlusive dressing applied. Primary RN notified. Midline lot # [id number]. x1 attempt
--- NOTE | 2019-02-09 18:10 | NUR ---
Nystatin Liquid administered via syringe on the mouth, suctioning done. Patient unable to swallow. On G tube. Family at bedside.
[2019-02-09] MEDS: AMIKACIN IV SCH (21:19)
[2019-02-09] MEDS: D5W 5% IV SCH (21:19)
[2019-02-09 21:39] VITALS: BP 96/62
[2019-02-10] MEDS: FREE WATER GT SCH ×5 (00:51→23:47)
[2019-02-10] MEDS: Glucerna 1.2 Cal 1Liter BOTTLE GT SCH (01:03)
[2019-02-10 04:31] VITALS: BP 126/76
[2019-02-10] MEDS: NYSTATIN (MOUTH-THROAT) 500,000 UNITS/5 ML SUSP MT SCH ×4 (05:56→21:57)
[2019-02-10] MEDS: CEFTAZIDIME-AVIBACTAM 2.5gm 2.5 GM in D5W 5% 100 ML IV SCH ×3 (05:57→21:57)
[2019-02-10] MEDS: IPRATROPIUM BROM 0.5 MG/2.5ML INH SOL NEB SCH ×5 (06:07→21:57)
[2019-02-10] MEDS: ALBUTEROL SULF 2.5 MG/0.5ML(0.5%) NEB SOLN NEB SCH ×5 (06:07→21:57)
[2019-02-10] MEDS: ACCU-CHEK COMFORT CURVE STRIP VI SCH ×4 (06:42→22:13)
[2019-02-10] MEDS: InsuLIN REG 1unit/0.01ml Soln (100units/ml) SC SCH ×4 (06:45→22:13)
--- NOTE | 2019-02-10 07:30 | NUR ---
Opening Shift Note Assumed care of patient, awake and responds to yes/no verbal commands. No S/S of distress/SOB or pain on 6L via mask. Instructed on POC and to call for assist PRN, will continue to monitor for changes Q1hr and PRN. Bed in low and locked position, rails up x2, no-slip socks on, munoz draining to gravity. Patient suctioned as needed, O2 96% on continuous pulse oximeter. Will continue to turn patient q2 hours.
--- NOTE | 2019-02-10 07:41 | NUR ---
faxed iv order to [facility]
[2019-02-10 08:00] VITALS: BP 117/68
--- NOTE | 2019-02-10 09:15 | NUR ---
FAMILY AT BEDSIDE DAUGHTER AND UPDATED ON PLAN OF CARE.
--- NOTE | 2019-02-10 09:35 | NUR ---
DR PULIDO AT BEDSIDE CONTINUE WITH DISCHARGE
[2019-02-10] MEDS: amLODIPine BESYLATE 5 MG TAB GT SCH (09:59)
[2019-02-10] MEDS: LISINOPRIL 20 MG TAB GT SCH (10:00)
[2019-02-10] MEDS: ASPirin 81 mg TAB GT SCH (10:00)
[2019-02-10] MEDS: OMEPRAZOLE 20MG/10ML ORAL SUSP GT SCH (10:00)
[2019-02-10] MEDS: DOCUSATE ORAL LIQUID 100 MG/10 ML UD GT SCH ×2 (10:00→21:57)
[2019-02-10] MEDS ORDERED: HYDROcodone-ACET 5/325MG TAB GT PRN (10:30)
[2019-02-10] MEDS ORDERED: AMIKACIN 0 ML IV SCH (10:30)
[2019-02-10 12:00] VITALS: BP 101/71
[2019-02-10 12:27] VITALS: BP 101/72
--- NOTE | 2019-02-10 12:49 | NUR ---
from a CM stand point, pt can go home, abx will be delivered between 1900 hrs and 2200 hrs. [facility] RN did see pt but no family at bedside. [facility] GALICIA notified of d/c
--- NOTE | 2019-02-10 14:30 | NUR ---
DISCHARGE INSTRUCTIONS SIGNATURE OBTAINED FROM PATIENTS , ALL DISCHARGE INSTRUCTIONS EXPLAINED AND QUESTIONS ANSWERED.
--- NOTE | 2019-02-10 15:00 | NUR ---
TRANSPORTATION PER [facility] CONTACTED ([id number]) FOR TRANSPORTATION TO BE ARRANGED FOR 1700, AWAITING CALL BACK
--- NOTE | 2019-02-10 16:05 | NUR ---
Umnoz catheter dc'd Order to discontinue munoz catheter. Munoz dc'd with clean technique following deflation of balloon. Patient tolerated well with no complaints of pain. Continue care. Output 700ml.
[2019-02-10 17:31] VITALS: BP 117/62
--- NOTE | 2019-02-10 17:45 | NUR ---
CALL FROM [facility] AT [employer], IV AVYCAZ IS OUT OF STOCK AND WILL NOT BE AVAILABLE UNTIL FRIDAY. PATIENT UNABLE TO GO HOME WITHOUT IV ANTIBIOTICS FOR MDRO PSEUDOMONAS SPUTUM. CALL TO ON-CALL HOSPITALIST, NORI PRICE TO NOTIFY ON NEED TO HOLD DISCHARGE. ORDER TO HOLD DISCHARGE RECEIVED. WILL RESUME TELEMETRY MONITORING.
--- NOTE | 2019-02-10 17:46 | NUR ---
DISCHARGE HELD NOTIFIED CHARGE NURSE AMADOR
--- NOTE | 2019-02-10 18:00 | NUR ---
RESIDUAL CHECK-60ML STOP PEG TUBE FEEDING, WILL RECHECK FEEDING IN AN HOUR
--- NOTE | 2019-02-10 18:56 | NUR ---
RESIDUAL RECHECK-0 ML RESTARTED GLUCERNA PEG TUBE FEEDING AT 70ML/H
--- NOTE | 2019-02-10 19:30 | NUR ---
Opening Shift Note Assumed care of patient, awake and alert. No S/S of distress/SOB or pain. Insructed on POC and to callfor assist PRN, will continue to monitor for changes Q1hr and PRN. Family at bedside. Fall and safety precautions in place. Call light within reach.
--- NOTE | 2019-02-10 20:00 | NUR ---
G TUBE FEEDING Residual checked at this time; 0ml. Patient tolerating tube feeding well. Will continue to monitor
[2019-02-10] MEDS: AMIKACIN IV SCH (20:17)
[2019-02-10] MEDS: D5W 5% IV SCH (20:17)
[2019-02-10 22:00] VITALS: BP 125/72
--- NOTE | 2019-02-11 | NUR ---
G TUBE FEEDING Residual checked at this time; 0ml. Patient tolerating tube feeding well, free water 200ml administered. Will continue to monitor
--- NOTE | 2019-02-11 01:50 | NUR ---
HYGIENE Patient incontinent and cleaned of urine. Partial linen change done, new gown placed on patient. Patient tolerated well. Will continue to monitor
--- NOTE | 2019-02-11 04:00 | NUR ---
G TUBE FEEDING Tube feeding changed, new bag hung. Residual checked at this time; 0ml. Patient tolerating feeding well. Will continue to monitor
[2019-02-11 04:30] VITALS: BP 116/69
[2019-02-11] MEDS: CEFTAZIDIME-AVIBACTAM 2.5gm 2.5 GM in D5W 5% 100 ML IV SCH ×3 (05:05→22:26)
[2019-02-11] MEDS: NYSTATIN (MOUTH-THROAT) 500,000 UNITS/5 ML SUSP MT SCH ×4 (05:05→22:21)
--- NOTE | 2019-02-11 05:30 | NUR ---
G TUBE FEEDING/OUTPUT Residual checked at this time; 50ml. Free water 200ml administered as ordered. Patient tolerated well. Replaced suction canister with new one. Output in canister is 600ml of clear/white frothy sputum. Documented in "intake and output" in interventions (see interventions). Will continue to monitor
[2019-02-11] MEDS: FREE WATER GT SCH ×3 (05:33→18:36)
[2019-02-11] MEDS: InsuLIN REG 1unit/0.01ml Soln (100units/ml) SC SCH ×4 (05:34→22:22)
[2019-02-11] MEDS: ACCU-CHEK COMFORT CURVE STRIP VI SCH ×4 (05:34→22:22)
[2019-02-11] MEDS: IPRATROPIUM BROM 0.5 MG/2.5ML INH SOL NEB SCH ×5 (06:05→22:19)
[2019-02-11] MEDS: ALBUTEROL SULF 2.5 MG/0.5ML(0.5%) NEB SOLN NEB SCH ×5 (06:06→22:19)
--- NOTE | 2019-02-11 07:30 | NUR ---
Opening Shift Note Assumed care of patient, awake and alert. No response from patient when questioned. No S/S of distress/SOB or pain. Instructed on POC and to call for assist PRN, will continue to monitor for changes Q1hr and PRN.
[2019-02-11 08:00] VITALS: BP 124/66
--- NOTE | 2019-02-11 10:00 | NUR ---
residual 35ml aspirated from peg tube. Residual returned and feeding resumed to Glucerna at 70 ml/hr.
[2019-02-11] MEDS: ASPirin 81 mg TAB GT SCH (10:50)
[2019-02-11] MEDS: DOCUSATE ORAL LIQUID 100 MG/10 ML UD GT SCH ×2 (10:51→21:59)
[2019-02-11] MEDS: OMEPRAZOLE 20MG/10ML ORAL SUSP GT SCH (10:54)
[2019-02-11] MEDS: amLODIPine BESYLATE 5 MG TAB GT SCH (10:54)
[2019-02-11] MEDS: LISINOPRIL 20 MG TAB GT SCH (10:55)
--- NOTE | 2019-02-11 11:31 | NUR ---
Nutrition Follow-up Notes Wt.: 90.7 kg Pt's in isolation room, asleep,no signs of distress noted during rounds this morning. Pt's currently NPO with EN support of Glucerna 1.2 Ward @ 70 ml/hr via PEG tube providing 2016 kcal, 100 gms pro, tolerates feeding well, per nursing. Pt with adequate EN support d/t high initiation rate delivery of concentrated formula aeb current EN infusion meets 103-112% of est caloric needs and 98-128%.of est protein needs. Est. Needs: 1800 kcal to 1950 kcal (23-25 kcal/kgBW), 78 gms to 102 gms pro (1.0-1.3 gms/kgBW for wound healing). Will continue to monitor pertinent labs and reassess nutrient need prn Labs: POC GLU 194 H. no new labs today 02/09: BUN 21 H Skin: Sylvester scale 11, high risk, pressure ulcer sacrum per documentation designer. GI: Pt had 2 BM on 02/10 per documentation designer. noted pt to be on MOM PES: Altered nutrition related lab values r/t acute/chronic medical condition aeb hyperglycemia, low Cr and elev. Mg level Increased nutrient needs r/t current/chronic medical condition aeb ALOC, CVA, Quadriplegia, NPO with EN support via PEG tube Will continue to monitor NPO status, EN tolerance skin status, pertinent labs and weight trend. F/u in 2 to 3 days. Rec.: 1.) Continue EN support with gradual decrease on feeding rate of Glucerna 1.2 Ward to 65 ml/hr goal rate 2.) Consider daily MVI with minerals and Asc acid 500 mgs BID. 3.) Refer pt's family to CDE/RD for further nutrition education and weight monitoring upon discharged. 4.) Continue current plan of care.
--- NOTE | 2019-02-11 12:30 | NUR ---
Residual 10ml of Residual aspirated from peg tube. 10 ml returned and feeding resumed. will continue to monitor.
--- NOTE | 2019-02-11 13:50 | NUR ---
WOUND CARE NOTE: Wound care in to see patient for skin integrity monitoring. Patient continue resting on air mattress in Rm. 232. He's awake and aphasic. Patient appears to be in no pain using [place] Lui Faces pain Scale. He's max assist in turning and repositioning and his current Sylvester score is 12. Skin assessment done with the help of nurse insurance account assistant Anjali. Patient remain wound free other than raised pink scar tissue to sacral/buttocks with blanchable mild redness. Patient is incontinent of urine. Manjula care given, care pad changed, applied Barrier cream as ordered. Repositioned patient for Comfort facing his Lt side, redistributed pressure points with pillows. Patient tolerated well. Bed in position with all safety precautions in placed. RECOMMENDATION: Continuation of all wound care orders prescribed by MD, continue with skin/wound plan of care, continue monitoring by wound care while patient is hospitalized. Addendum: 02/11/19 at 1721 by Haleigh Sue RN Amended: Links added.
[2019-02-11 14:39] VITALS: BP 113/68
[2019-02-11 17:10] VITALS: BP 132/74
--- NOTE | 2019-02-11 18:00 | NUR ---
Checked Residual 60cc aspirated from peg. Pushed back residual and resumed feeding at 70 ml/hr. oral care performed with nystatin mouth wash.
--- NOTE | 2019-02-11 19:30 | NUR ---
RECEIVED PATIENT LYING IN BED. PATIENT IS WAKE WITH SPONTANEOUS EYE OPENING, NO VERBAL RESPONSE, ABLE TO MOVE HIS RIGHT ARM AND RIGHT LEG AND FOLLOWS COMMAND. NO S/S OF RESPIRATORY DISTRESS , ON O2 AT 6 LPM VIA SIMPLE MASK SATURATING AT 94-98%. ON ENTERAL FEEDING VIA PEG TUBE AT 70 ML/HR. INCONTINENT TO STOOL AND URINE. WITH MILD SWELLING OF THE LEFT HAND. ON SCD'S BILATERAL LOWER LEG. SKIN IS INTACT. BED IS LOCKED AND IN LOWEST LEVEL, SIDE RAILS UP X2, CALL LIGHT WITHIN REACH. WILL CONTINUE TKO MONITOR
[2019-02-11] MEDS: D5W 5% IV SCH (21:08)
[2019-02-11] MEDS: AMIKACIN IV SCH (21:08)
[2019-02-11 21:30] VITALS: BP 135/74
--- NOTE | 2019-02-11 22:30 | NUR ---
RESIDUAL CHECKED 40 ML ASPIRATED FROM THE PEG TUBE, PUSHED IT BACK. RESUMED FEEDING AT 70 ML/HR
[2019-02-12] MEDS: FREE WATER GT SCH ×3 (00:26→12:04)
--- NOTE | 2019-02-12 00:30 | NUR ---
RESIDUAL CHECKED 10 ML ASPIRATED FROM THE PEG TUBE, PUSHED IT BACK. 200 ML FREE WATER GIVEN. RESUMED FEEDING AT 70 ML/HR
--- NOTE | 2019-02-12 00:33 | NUR ---
CARE ENDORSED TO JACKELIN REECE
--- NOTE | 2019-02-12 00:34 | NUR ---
Received report from Goldy BENÍTEZ , assuming care of patient at this time
--- NOTE | 2019-02-12 00:40 | NUR ---
Rounds Patient sleeping, eyes closed, respirations even and unlabored. No S/S of distress/SOB on simple mask 6L on continuous pulse ox saturation 99%, HR 92 or pain. Tube feeding infusing Glucerna at 70 ml/hr Will continue to monitor changes q1hr and PRN. Pt on isolation droplet for MDRO in sputum
--- NOTE | 2019-02-12 03:53 | NUR ---
Rounds Patient sleeping, eyes closed, respirations even and unlabored. No S/S of distress/SOB on simple mask 6L on continuous pulse ox saturation 99%, HR 89, no signs of pain. Tube feeding infusing Glucerna at 70 ml/hr Will continue to monitor changes q1hr and PRN.
[2019-02-12 04:30] VITALS: BP 141/75
--- NOTE | 2019-02-12 04:30 | NUR ---
Rounds Patient awake and alert. No S/S of distress/SOB on 6L simple mask saturating 98%, denies pain by squeezing right hand. Patient suctioned, patient had urinary incontinence, skin cleansed and zguard applied to sacrum, no open wound. Patient repositioned to left side with use of pillows and aide. Will continue to monitor changes q1hr and PRN.
[2019-02-12] MEDS: NYSTATIN (MOUTH-THROAT) 500,000 UNITS/5 ML SUSP MT SCH ×2 (06:29→12:04)
[2019-02-12] MEDS: CEFTAZIDIME-AVIBACTAM 2.5gm 2.5 GM in D5W 5% 100 ML IV SCH ×2 (06:29→14:16)
--- NOTE | 2019-02-12 06:29 | NUR ---
Checked Residual 60cc aspirated from peg. Pushed back residual and resumed Glucerna feeding at 70 ml/hr. Oral care performed with nystatin mouth wash, suctioned after for aspiration precautions, pt tolerated well.
[2019-02-12] MEDS: ACCU-CHEK COMFORT CURVE STRIP VI SCH ×2 (06:30→12:03)
[2019-02-12] MEDS: InsuLIN REG 1unit/0.01ml Soln (100units/ml) SC SCH ×2 (06:49→12:04)
[2019-02-12] MEDS: ALBUTEROL SULF 2.5 MG/0.5ML(0.5%) NEB SOLN NEB SCH ×3 (06:49→14:25)
[2019-02-12] MEDS: IPRATROPIUM BROM 0.5 MG/2.5ML INH SOL NEB SCH ×3 (06:49→14:25)
[2019-02-12 06:59] LABS: Hematocrit 42.3 % (41.0-53.0); Mean Corpuscular Hgb Conc. 33.2 g/dL (32.0-36.0); Mean Corpuscular Volume 87.3 fL (80.0-100.0); Platelet Count (auto) 185 10^3/uL (140-450); Red Blood Cells 4.84 10^6/uL (4.5-5.90); Red Cell Distribution Width 13.7 % (11.8-14.3); White Blood Cell 8.5 10^3/uL (4.4-10.8)
[2019-02-12 07:10] LABS: BUN/Creatinine Ratio 30.2; Calcium 9.5 mg/dL (8.5-10.1); Potassium 3.9 mmol/L (3.5-5.1)
[2019-02-12 07:22] LABS: Basophils % (manual) 0 (0.0-2.0); Blast Cells 0; Metamyelocytes % 0; Myelocytes % 0; Promyelocytes % 0; Reactive Lymphocytes 0
--- NOTE | 2019-02-12 07:22 | NUR ---
Endorsed care to Misael BENÍTEZ
--- NOTE | 2019-02-12 07:30 | NUR ---
Opening Shift Note Assumed care of patient, awake and alert. No S/S of distress/SOB or pain. Instructed on POC and to call for assist PRN, will continue to monitor for changes Q1hr and PRN.
[2019-02-12 08:00] VITALS: BP 123/71
--- NOTE | 2019-02-12 08:30 | NUR ---
Family at bedside. Updated the family on Discharge plan. No word yet about the antibiotic being in stock. Will reach out to manager social media for confirmation.
[2019-02-12 09:00] VITALS: BP 123/71
--- NOTE | 2019-02-12 09:20 | NUR ---
Spoke with Linda in social media community manager. informed her that the Iv antibiotics were holding up his discharge. She informed me that she will let the appropriate people know. awaiting confirmation that the antibiotic is in stock and able to be delivered.
[2019-02-12 09:22] VITALS: BP 141/75
--- NOTE | 2019-02-12 10:18 | NUR ---
Home abx, called [facility] and they just go A order in and they will have to look through that order to see if abx med has come, Rose from [facility] to call me later
[2019-02-12 10:58] LABS: Band Neutrophils % (manual) 1; Eosinophils % (manual) 24 (0-7); Lymphocytes % (manual) 21 (10.0-50.0); Monocytes % (manual) 9 (0-12)
[2019-02-12] MEDS: DOCUSATE ORAL LIQUID 100 MG/10 ML UD GT SCH (11:04)
[2019-02-12] MEDS: ASPirin 81 mg TAB GT SCH (11:04)
[2019-02-12] MEDS: amLODIPine BESYLATE 5 MG TAB GT SCH (11:05)
[2019-02-12] MEDS: OMEPRAZOLE 20MG/10ML ORAL SUSP GT SCH (11:08)
[2019-02-12] MEDS: LISINOPRIL 20 MG TAB GT SCH (11:09)
--- NOTE | 2019-02-12 11:12 | NUR ---
RESIDUAL CHECK. NO RESIDUAL ABLE TO BE ASPIRATED. FEEDING CONTINUED, GLUCERNA @ 70ML/HR.
--- NOTE | 2019-02-12 12:50 | NUR ---
Home ABX: Per Jocelyn, all meds for this pt have arrived and meds will be delivered between 1900 hrs and 2200hrs to pt's home
[2019-02-12 13:00] VITALS: BP 121/69
--- NOTE | 2019-02-12 13:50 | NUR ---
Pt cannot go home yet since HH agency backed out citing no staff. I will have to find a HH agency that can accomodate pt
--- NOTE | 2019-02-12 13:59 | NUR ---
FAXED ss order for abx to [facility]
--- NOTE | 2019-02-12 14:29 | NUR ---
per [facility], pt is accepted and start of care will be tomorrow
--- NOTE | 2019-02-12 15:15 | NUR ---
spoke with gabby to confirm that transportation is being set up so that the patient can discharge home today.
[2019-02-12 16:50] VITALS: BP 121/69
--- NOTE | 2019-02-12 16:50 | NUR ---
Discharge instructions given as ordered. Encourage to follow up with PMD as instructed. All questions and concerns addressed. Patient verbalized understanding. Midline IV to left upper arm left in place for infusion of home IV antibiotics. Telemetry unit returned to [facility]. Patient taken to vehicle via gurney with all personal belongings, accompanied by transportation staff and family member. No distress noted at time of departure.
--- NOTE | 2019-02-12 16:55 | NUR ---
auth rufina GALICIA per Jennifer Rodriguez [facility] CM is [phone]
--- NOTE | 2019-02-12 17:26 | NUR ---
[facility] notified of pt discharged, spoke to Jocelyn
== END 2019-02-12 16:50 | disposition home health service (06) | DRG 177 ==
LOC: EDUNIT# 14:07 → ER 14:07 → EDBD 14:07 → OVERFLOW 16:44 → DOU IN ICU 20:14 → TELE-EAST 02-05 12:07
PROVIDERS: ADMIT Nurse Practitioner Acute Care; ATTEND Internal Medicine
DX: J69.0 Pneumonitis due to inhalation of food and vomit (principal); J96.21 Acute and chronic respiratory failure with hypoxia; G82.50 Quadriplegia, unspecified; E44.1 Mild protein-calorie malnutrition; J98.11 Atelectasis; R47.01 Aphasia; B96.5 Pseudomonas (aeruginosa) (mallei) (pseudomallei) as the cause of diseases classified elsewhere; E11.9 Type 2 diabetes mellitus without complications; I10 Essential (primary) hypertension; I70.8 Atherosclerosis of other arteries; K40.90 Unilateral inguinal hernia, without obstruction or gangrene, not specified as recurrent; K59.00 Constipation, unspecified; H54.8 Legal blindness, as defined in USA; E78.5 Hyperlipidemia, unspecified; R31.0 Gross hematuria; Z93.1 Gastrostomy status; Z99.81 Dependence on supplemental oxygen; Z74.01 Bed confinement status; Z79.84 Long term (current) use of oral hypoglycemic drugs; Z79.899 Other long term (current) drug therapy; Z82.49 Family history of ischemic heart disease and other diseases of the circulatory system; Z83.3 Family history of diabetes mellitus; Z86.73 Personal history of transient ischemic attack (TIA), and cerebral infarction without residual deficits; Z68.28 Body mass index [BMI] 28.0-28.9, adult
CPT/HCPCS: 31720; 36415; 51702; 71045; 80048; 80053; 80150; 81001; 82565; 82962; 83605; 83735; 84484; 84520; 85007; 85014; 85018; 85025; 85027; 85610; 85730; 87040; 87070; 87077; 87081; 87086; 87186; 87205; 93005; 94640; 94761; 96365; 96366; G0378; J0714; J1815; J7060